=== PATIENT | male | born 1950 | race Caucasian/White ===

== ENCOUNTER 2017-05-06 06:50 | Day surgery (SDC) | payer MEDICARE, BC ==
[~2017-05-06 06:50] MED LIST: RINGER'S SOLUTION,LACTATED 1,000 ML IV PRN
[2017-05-06] MEDS ORDERED: RINGER'S SOLUTION,LACTATED 1,000 ML IV ONE (07:30)
[2017-05-06 10:06] VITALS: BP 177/83
--- NOTE | 2017-05-06 10:28 | OR ---
Operative Report - Dictated Report Narrative: Date: 05/06/2017 Preop diagnosis: Screen for colon cancer. Personal history of colon polyps Postop diagnosis: Pancolonic diverticulosis. Polyp at 50 cm Procedure: Total colonoscopy. Polypectomy at 50 cm with hot snare. Staff surgeon: Isaiah Allen MD Anesthesia: MAC per STEM SHAPER EBL: minimal Specimen: Polyp at 50 cm Description: After informed consent and appropriate sedation the patient was placed in the left lateral decubitus position. A flexible fiberoptic video colonoscope was introduced and advanced under direct vision without difficulty to the cecum. The usual landmarks were identified. Preparation was fair but good views were obtained. The findings were of a normal cecum, ascending colon, hepatic flexure, transverse colon, splenic flexure, a pedunculated polyp was seen at 50 cm and excised at its base with a hot snare. The polyp was suctioned to the tip of the scope and removed and submitted for pathologic examination. The scope was then re-introduced and advanced to the previous polypectomy site. The sigmoid colon, and rectum were normal. Pancolonic diverticulosis was noted. The mucosal color, vasculature and texture were normal throughout. No suspicious masses were seen. The patient tolerated the procedure well without apparent complications and was discharged from the endoscopy suite in stable condition.
== END 2017-05-06 06:51 | disposition home or self-care (01) ==
LOC: AMB 06:50
PROVIDERS: ATTEND Specialist
PROC: 0DBE8ZX Excision of Large Intestine, Via Natural or Artificial Opening Endoscopic, Diagnostic (ICD-10-PCS; principal; 2017-05-06 08:00)
DX: Z12.11 Encounter for screening for malignant neoplasm of colon (principal); K63.5 Polyp of colon; K57.30 Diverticulosis of large intestine without perforation or abscess without bleeding; I10 Essential (primary) hypertension; E11.9 Type 2 diabetes mellitus without complications; E78.5 Hyperlipidemia, unspecified; J44.9 Chronic obstructive pulmonary disease, unspecified; E55.9 Vitamin D deficiency, unspecified; Z87.891 Personal history of nicotine dependence; Z68.36 Body mass index [BMI] 36.0-36.9, adult

== ENCOUNTER 2017-08-26 21:18 | Emergency (ER) | payer MEDICARE, BC ==
[2017-08-26] MEDS ORDERED: ALBUTEROL SULFATE/IPRATROPIUM 3 ML NEBU IH ONE ×2 (21:35→21:37)
[2017-08-26] MEDS ORDERED: ALBUTEROL SULFATE 2.5 MG/0.5 ML VIAL.NEB IH ONE ×5 (21:35→22:11)
[2017-08-26] MEDS ORDERED: DEXAMETHASONE SODIUM PHOSPHATE 10 MG/ML VIAL IV ONE (21:41)
--- NOTE | 2017-08-26 21:41 | ERNOTE ---
Dyspnea - Date Date of Service: 08/26/17 - General Presenting Symptoms: shortness of breath Time Seen by Provider: 08/26/17 21:34 Source: patient - Immun/Allergies/Home Medications Immunizations: IMMUNIZATION HX Immunizations Up to Date Yes History of Influenza Vaccine Yes Hx Pneumococcal Vaccination Yes Allergies/Adverse Reactions: Allergies gluten Adverse Reaction (Mild, Verified 04/21/17 16:55) GI UPSET tetracycline [Tetracycline] Adverse Reaction (Mild, Verified 04/21/17 16:55) Itching Home Medications: HOME MEDICATIONS Zolpidem Tartrate [Ambien] 10 mg PO HS PRN 06/21/12 [Last Taken 10/23/14 21:00 1 tab] Albuterol Sulfate [Proair Hfa] 2 puff IH Q4H PRN 10/10/13 [Last Taken 10/24/14 21:30] Fluticasone/Salmeterol [Advair 250-50 Diskus] 1 puff IH BID 09/09/15 [Last Taken Unknown] Acetaminophen [Tylenol] 650 mg PO TID PRN 04/21/17 [Last Taken Unknown] Albuterol Sulfate [Albuterol Sulfate 2.5 MG/3 ML] 2.5 mg IH Q4H PRN 04/21/17 [ Last Taken Unknown] Blood-Glucose Meter [Blood Glucose Monitoring] 1 each MC DAILY 04/21/17 [Last Taken Unknown] Furosemide [Lasix] 20 mg PO DAILY 04/21/17 [Last Taken Unknown] Insulin Glargine,Hum.rec.anlog [Lantus Solostar] 22 unit SQ HS 04/21/17 [Last Taken Unknown] Insulin Glargine,Hum.rec.anlog [Lantus Solostar] 52 unit SQ QAM 04/21/17 [Last Taken Unknown] Insulin Lispro [Humalog Kwikpen] 5 unit SQ 1200 04/21/17 [Last Taken Unknown] Insulin Lispro [Humalog Kwikpen] 10 unit SQ BID 04/21/17 [Last Taken Unknown] amLODIPine BESYLATE [Norvasc] 5 mg PO DAILY 04/21/17 [Last Taken Unknown] Calcitriol 0.25 mcg PO MOWEFR 08/26/17 [Last Taken Unknown] Cholecalciferol (Vitamin D3) [Vitamin D3] 1,000 unit PO DAILY 08/26/17 [Last Taken Unknown] Docusate Sodium [Stool Softener] 100 mg PO DAILY 08/26/17 [Last Taken Unknown] Losartan Potassium [Cozaar] 25 mg PO DAILY 08/26/17 [Last Taken Unknown] - History of Present Illness Narrative: 67 year old with a history of COPD, DM, respiratory failure, HTN, hypercarbia, hypoxia, sepsis, moderate to severe pulmonary hypertension complains of a sudden onset of shortness of breath that started yesterday at noon. The dyspnea became progressively worse. EMS found that the oxygen saturation was in the 70 on presentation. Denies any chest pain, fevers, chills, N/V/D. Occasionally uses oxygen at home. Date (Duration): 08/26/17 Severity: moderate Treatment [employer]: by patient Initiating event: Reports: upper resp illness Frequency of episodes: Reports: occassional episodes Modifying Factors - (Improves): Reports: nothing Modifying Factors (Worsens): Reports: activity Review of Systems - Review of Systems Constitutional: Present: no symptoms reported EYE: Present: no symptoms reported ENT: Present: no symptoms reported Respiratory: Present: See HPI Cardiology: Present: no symptoms reported Gastrointestinal/Abdominal: Present: no symptoms reported Genitourinary: Present: no symptoms reported Musculoskeletal: Present: no symptoms reported Skin: Present: no symptoms reported Neurological: Present: no symptoms reported Endocrine: Present: no symptoms reported Hematologic/Lymphatic: Present: no symptoms reported Psych: Present: no symptoms reported - Patient's Past Medical History Patient History - Medical: Arthritis, Diabetes Type 1 Patient History - Cardiac/Respiratory: COPD, Hypertension Patient History - Cancer: No Hx of Cancer Patient History - Surgical Procedures: Cataracts, Other Patient History - Other: Chronic Steroid Therapy - Family History Mother Family History - Medical: , No pertinent hx Family History - Cardiac/Respiratory: No pertinent hx Family History - Cancer: Breast Father Family History - Medical: , No pertinent hx Family History - Cardiac/Respiratory: Myocardial Infarction Family History - Cancer: No pertinent family hx - Social History Living Situations: spouse Abuse History: No History of abuse Psych History: No pertinent hx Smoking Status: Former smoker Alcohol Use: none - Immunizations Immunizations Up to Date: Yes Hx Pneumococcal Vaccination: Yes History of Influenza Vaccine: Yes Physical Exam - Physical Exam General Appearance: Present: no apparent distress Head Exam: Present: normal inspection Eye Exam: Normal inspection: bilateral, PERRL: bilateral, EOMI: bilateral Ears, Nose, Throat: Present: normal ENT inspection Neck: Present: normal inspection Respiratory: Present: accessory muscle use - mild, decreased breath sounds Cardiovascular/Chest: Present: regular rate, rhythm, tachycardia Gastrointestinal/Abdominal: Present: nontender, nondistended, soft Back Exam: Present: normal inspection Extremity Exam: Present: normal inspection. Absent: pedal edema Neurological Exam: Present: alert, oriented, normal mood/affect Skin Exam: Present: normal color ED Progress - Results and Orders Patient's Lab Results:: I have reviewed the patient's lab results. - Vital Signs Patient's Vital Signs:: I have reviewed the patient's vital signs. Vital Signs: Vital Signs 08/26/17 08/26/17 21:26 21:33 Temperature 37.7 C H Pulse Rate 128 H 120 H Respiratory 44 H 36 H Rate Blood Pressure 185/73 O2 Sat by Pulse 79 L 93 Oximetry - EKG EKG: NSR EKG Comments: tachycardic, old inferior DC, LAD - Progress/Reassessment Chief Complaint: Dyspnea Progress:: Improved Progress Note-Subjective: 08/26/17 22:39 After nebulizer treatment breathing was easier and increased breath sounds. 08/26/17 23:26 Since the D dimer was elevated and there is CRF he will need a VQ scan to rule out a PE. The case was discussed with Rachel/Patience who recommended transfer of the patient since a VQ scan could not be done over the weekend at [facility]. Will be given Heparin. 08/27/17 01:11 Initially the patient was going to be transferred to [facility], but then it was discovered that the VQ scan also would not be done there this weekend either. The patient was given a choice of going to [place] or the [facility], and has chosen [facility] 08/27/17 01:[address] Forte at the or who has accepted the transfer of the patient. 08/29/17 02:35 Departure Clinical Impression: Acute chronic obstructive pulmonary disease with respiratory failure, Acute CHF - Departure Disposition: [facility] Condition: Fair Referrals: Lyle Flanagan DO [Primary Care Provider] -
[2017-08-26 21:49] LABS: Hematocrit 40.3 % (42.0-52.0); Hemoglobin 13.6 gm/dL (13.5-18.0); Mean Cell Volume 92.6 fl (78-100); Mean Corpuscular Hemoglobin 31.3 pg (27-31); Mean Corpuscular Hgb Conc 33.7 g/dl (32-36); Neutrophil # 10.2 K/mm3 (1.3-6.0); Neutrophil % 80.7 % (42-75.0); Platelet Count 194 K/mm3 (150-450); Red Blood Count 4.35 M/mm3 (4.7-6.0); Red Cell Distribution Width 13.9 % (11.5-14.0); White Blood Count 12.7 K/mm3 (4.0-10.5)
[2017-08-26 21:50] LABS: Venous Blood Gas HCO3 23.9 mmol/L (22.0-29.0); Venous Blood Gas pH 7.29 (7.32-7.43)
[2017-08-26] MEDS ORDERED: DEXAMETHASONE SODIUM PHOSPHATE 10 MG/ML VIAL ONE (21:53)
[2017-08-26 22:15] LABS: Anion Gap 14.5 mmol/L (6.8-13.8); BUN/Creatinine Ratio 10.8 (9.0-21.6); Calcium * 8.4 mg/dL (7.9-10.9); Carbon Dioxide 24.3 mmol/L (24-32.6); Estimated Creat Clear 22.1; Potassium 4.8 mmol/L (3.4-4.6); Troponin I 0.061 ng/ml (0.00-0.10)
[2017-08-26] MEDS ORDERED: HEPARIN SODIUM,PORCINE/D5W 25,000 UNITS/500 ML BAG IV PRN (23:28)
[2017-08-26 23:38] LABS: Prothrombin Time (Patient) 10.6 Seconds (9.0-11.0)
[2017-08-26 23:43] LABS: INR 1.06 INR (0.90-1.10)
[2017-08-27] MEDS ORDERED: HEPARIN SODIUM,PORCINE 5,000 UNITS/ML VIAL ONE (00:28)
[2017-08-27] MEDS ORDERED: HEPARIN SODIUM,PORCINE 10,000 UNITS/ML VIAL IV ONE (00:33)
[2017-08-27] MEDS ORDERED: ACETAMINOPHEN 325 MG TABLET PO ONE (00:57)
[2017-08-27] MEDS ORDERED: ACETAMINOPHEN 325 MG TABLET ONE (00:58)
[2017-08-27 01:33] VITALS: BP 112/77
== END 2017-08-27 01:35 | disposition short-term general hospital (02) ==
LOC: ER 21:18
DX: J96.00 Acute respiratory failure, unspecified whether with hypoxia or hypercapnia (principal); J44.9 Chronic obstructive pulmonary disease, unspecified; I50.9 Heart failure, unspecified; I10 Essential (primary) hypertension; E10.9 Type 1 diabetes mellitus without complications; Z79.4 Long term (current) use of insulin; Z79.891 Long term (current) use of opiate analgesic